=== PATIENT | female | born 1960 | race Caucasian/White ===

== ENCOUNTER 2018-06-01 07:42 | Day surgery (SDC) | END 2018-06-01 15:20 | disposition home or self-care (01) ==

== ENCOUNTER 2018-11-19 08:09 | Day surgery (SDC) | payer MEDICAID, OTHER ==
[2018-11-16 16:16] VITALS: Ht 152.4 cm; Wt 81.8 kg
[2018-11-19] VITALS (29 sets, daily range): BP systolic 114–141; BP diastolic 57–76; PULSE 63–82; RESP 13–19
[~2018-11-19] VITALS: Ht 152.4 cm; Wt 81.8 kg
[~2018-11-19 08:09] MED LIST: CEFAZOLIN 2 GM/50 ML (PMX) 50 ML IVPB SCH; ISOSULFAN BLUE 1% 5 ML INJ SC ONE; SOD CHLORIDE 0.9% 1,000 ML IV SCH
[2018-11-19] MEDS ORDERED: ISOSULFAN BLUE 1% 5 ML INJ SC ONE (11:41)
--- NOTE | 2018-11-19 12:20 | PREAC ---
Date/Time of Note Date/Time of Note DATE: 11/19/18 TIME: 12:17 Anesthesia Eval and Record Evaluation Time Pre-Procedure Interview DATE: 11/19/18 TIME: 12:17 Age 57 Sex female NPO: 8 hrs Preoperative diagnosis Lt breast mass Planned procedure Lt Breast needle localized partial mastectomy Past Medical History Past Medical History: None Surgery & Anesthesia Issues No known issue Meds Anticoagulation: No Beta Katherine within 24 hr: No Reason Beta Katherine not given: Pt. not on B-Katherine No Active Prescriptions or Reported Meds Current Medications Cefazolin Sodium/ Dextrose 50 ml @ 100 mls/hr PRE-OP IVPB ; Start 11/19/18 at 07:00; Stop 11/19/18 at 19:00 Sodium Chloride 1,000 ml @ 75 mls/hr [id number] IV ; Start 11/19/18 at 07:00; Stop 11/19/18 at 19:00 Meds reviewed: Yes Allergies Coded Allergies: No Known Allergy (Unverified , 11/19/18) Allergies Reviewed: Yes Labs/Studies Labs Reviewed: Reviewed by anesthesiologist test: N/A Studies: ECG Pre-procedure Exam Last vitals Vital Signs Date Temp Pulse Resp B/P (MAP) Pulse Ox O2 O2 Flow FiO2 Time Delivery Rate 11/19/18 96.8 64 16 114/57 100 Room Air 11:56 (76) Airway: Adequate mouth opening, Adequate thyromental dist Mallampati: Mallampati II Teeth: Normal Lung: Normal Heart: Normal ASA Physical Status ASA physical status: 3 Emergency: None Planned Anesthetic General/MAC: LMA Planned Pain Management Parenteral pain med Pre-operative Attestations Prior to commencing anesthesia and surgery, the patient was re-evaluated, there was verification of: *The patient's identity *The results of appropriate recent lab work and preoperative vital signs *The above evaluation not changing prior to induction *Anesthetic plan, risk benefits, alternative and complications discussed with patient/family; questions answered; patient/family understands, accepts and wishes to proceed. LILLIE SULLIVAN MD Nov 19, 2018 12:20
[2018-11-19] MEDS ORDERED: FENTAnyl 50 MCG/ML VIAL ONE (12:43)
[2018-11-19] MEDS ORDERED: MIDAZOLAM 1 MG/ML 2 ML INJ ONE (12:43)
[2018-11-19] MEDS ORDERED: PROPOFOL 20 ML ONE (13:45)
[2018-11-19] MEDS ORDERED: LIDOCAINE 2% (SDV) 5 ML INJ ONE (13:45)
[2018-11-19] MEDS ORDERED: CEFAZOLIN 1 GM INJ ONE (13:45)
[2018-11-19] MEDS ORDERED: ONDANSETRON 4 MG INJ ONE (13:46)
--- NOTE | 2018-11-19 13:55 | SIPON ---
Date/Time of Note Date/Time of Note DATE: 11/19/18 TIME: 13:53 Operative Report Preoperative Diagnosis Locally advanced left breast cancer Postoperative Diagnosis Same Operation/Procedure Performed Left needle directed partial mastectomy and axillary dissection Surgeon see signature line visitor services assistant Dr Parr Anesthesia: general Estimated blood loss: 10 - 50 ml's Transfusion Required none Specimen Left partial mastectomy specimen and axillary contents Grafts/Implants 1 none Complications none TENISHA ARELLANO MD Nov 19, 2018 13:55
[2018-11-19] MEDS ORDERED: ONDANSETRON 4 MG INJ IV PRN (14:00)
[2018-11-19] MEDS ORDERED: ACETAMINOPHEN 1000MG/100ML IV 100 ML IVPB PRN (14:00)
[2018-11-19] MEDS ORDERED: morphine 2 MG INJ IV PRN (14:00)
--- NOTE | 2018-11-19 14:50 | OPR ---
DATE OF OPERATION: 11/19/2018 PREOPERATIVE DIAGNOSIS: Locally advanced invasive cancer, left breast. POSTOPERATIVE DIAGNOSIS: Locally advanced invasive cancer, left breast. PROCEDURE: Left needle-directed partial mastectomy and axillary dissection. ANESTHESIA: General. ANESTHESIOLOGIST: Iván Quijano MD. SURGEON: Brandon Nogueira MD ELECTRONICS INSTRUCTOR: Jonathan Ayala MD INDICATIONS FOR PROCEDURE: The patient is an unfortunate 57-year-old female who presented with a loc ally advanced left breast cancer. She had a 3.5 cm tumor and biopsy proven axillary metastasis. Giuseppe or was HER-2 positive. Therefore, the patient underwent neoadjuvant chemotherapy with good response. She was thus a candidate for breast conservation surgery. She consented and was scheduled for surg kelly. DESCRIPTION OF PROCEDURE: On the morning of surgery, the patient presented to [facility] where she underwent localization of the lesion performed by attending radiologist, Dr. Elisabet Schneider. Subsequently, she was brought to the operating theater, placed under general anesth esia. The left breast and axillary region was prepped and draped in the usual sterile fashion. The localization wire was at approximately the 3 o'clock location extending directly into the subareolar location. The tumor itself radiographically was directly posterior to the nipple. Therefore, a farnaz areolar incision was made from the 12 o'clock location through the 3 o'clock location to the 6 o'cloc k location. Subcutaneous tissue was dissected with cautery. Skin edges were elevated with skin hook s and wide circumferential dissection of the tissue associated with the wire took place all the way d own to the pectoralis major fascia. Specimen was then elevated and transected directly off of the pe ctoralis major muscle. It was removed, oriented and sent for radiographic confirmation of capture. Capture was confirmed. The wound was irrigated. Residual bleeding was controlled with cautery. Due to the large size of the defect, decision was made to place a #10 flat Prashanth-Reese drain within th e wound cavity. It was brought through the left mid axillary line, cut to size, laid within the cavi ty and then secured in place with 2-0 nylon suture. The skin incision was then closed in double laye r fashion with 4-0 Vicryls in deep dermal interrupted fashion, followed by running 4-0 Vicryl suture in subcuticular fashion. Attention was then directed to performing the axillary dissection. Approximately 4 to 6 cm incision was made in the left axillary hairline. Subcutaneous tissue was dissected with cautery. Dissection proceeded posteriorly to the latissimus dorsi muscle, was identified throughout its course. Dissecti on then proceeded anteriorly until the pectoralis major muscle and subsequently the pectoralis minor muscle was identified. Clavipectoral fascia was incised with blunt dissection along the chest wall. The long thoracic nerve was identified and kept out of harm's way. More superiorly, the axillary ve in was identified, dissected from lateral to medial. There were several relatively large lymph nodes noted suspicious for possible residual disease. In this fashion, level 2 and level 2 lymph nodes we re harvested. Great care was taken not to injure the thoracodorsal neurovascular bundle. The lymph nodes were removed and sent for permanent pathologic analysis. The wound was irrigated. Minimal ble eding was controlled with cautery. A #10 flat Prashanth-Reese drain was then brought through the left mid axillary line, cut to size and laid within the axilla. It was secured in place with 2-0 nylon rosales ture in standard fashion. The skin was then reapproximated with 4-0 Vicryl suture in subcuticular fa shion. Dermabond was applied to both incisions. The patient tolerated procedure well. The estimate d blood loss was approximately 30 mL. There were no complications and the patient was transported in stable condition to the recovery room where circumferential compression dressing was applied. Dictated By: BRANDON NOGUEIRA MD TL/MARQUITA Conf#: [id number] DID#: [id number] CC: BRANDON NOGUEIRA MD; JONATHAN AYALA MD;*EndCC*
[2018-11-19] MEDS ORDERED: HYDROCODONE/APAP (5/325) TAB PO PRN (15:30)
--- NOTE | 2018-11-19 15:34 | HP ---
DATE OF ADMISSION: 11/19/2018 CHIEF COMPLAINT AND HISTORY OF PRESENT ILLNESS: The patient is a 57-year-old female with history of moderately differentiated invasive ductal carcinoma of left breast which was subsequently noted to be HER-2 positive. The patient underwent a Port-A-Cath placement few months ago and subsequently under went neoadjuvant chemotherapy at [facility]. The patient is also being followed by Dr. Campbell abraham. The patient was being followed by Dr. Nogueira as an outpatient and was brought into the hospital today for left needle-directed partial mastectomy and axillary dissection. The patient has signific ant postoperative chest wall pain and is being admitted for further evaluation and management. The p atient apparently had a good response from neoadjuvant chemotherapy and therefore was a candidate for breast conservation surgery. The patient did not have any headache, dizziness, syncope. No history of cough. No history of sore throat. No history of abdominal pain. No history of vomiting. No hi story of focal weakness. REVIEW OF SYSTEMS: Other than postoperative pain, rest of review of systems was unremarkable. PAST MEDICAL HISTORY: As stated above. PAST SURGICAL HISTORY: As stated above. In addition, the patient also is status post . ALLERGIES: NO KNOWN DRUG ALLERGIES. FAMILY HISTORY: No family history of cancer. Mother apparently had vasculitis and father is diabeti c. SOCIAL HISTORY: Nonsmoker, no alcohol use. PHYSICAL EXAMINATION: GENERAL: Revealed the patient to be lethargic from recent surgery, but arousable and follows simple commands. VITAL SIGNS: Temperature 96.8, pulse 64, respirations 16, blood pressure 141/57, O2 sat is 100% on r oom air. HEENT: No eye discharge or redness. Conjunctivae and lids are normal. Oropharynx is clear. NECK: No mass. CHEST: Fairly clear. CARDIOVASCULAR: S1, S2 normal. No murmur. ABDOMEN: Soft, nondistended, nontender. EXTREMITIES: The patient did not have any edema. Pedal pulses are palpable. SKIN: Without acute rash. NEUROLOGIC: No gross focal deficit. LABORATORY DATA: WBC 5.7, hemoglobin 9.4. IMPRESSION: Locally advanced left breast cancer with biopsy-proven axillary metastases, status post neoadjuvant chemotherapy with good response. The patient was admitted today for left needle-directed partial mastectomy and axillary dissection. PLAN: The patient will be admitted on medical floor. The patient will be started on a clear liquid diet, which will be advanced as tolerated. We will use SCD for DVT prophylaxis. For pain, the patie nt will be put on Tylenol, [place] and IV morphine. We will use Zofran for nausea, vomiting. If the p atient continues to do well, she will be discharged home tomorrow. Dictated By: ED CRAWFORD MD AB/MARQUITA Conf#: [id number] DID#: [id number] CC: TENISHA NOGUEIRA MD;*EndCC*
[2018-11-19] MEDS: D5W-0.45 NACL + KCL 20 MEQ 1,000 ML IV SCH (16:53)
[2018-11-20 00:35] VITALS: BP 119/57; PULSE 69; RESP 18
[2018-11-20] MEDS: D5W-0.45 NACL + KCL 20 MEQ 1,000 ML IV SCH ×3 (03:24→12:20)
[2018-11-20 05:42] VITALS: BP 117/57; PULSE 80; RESP 18
[2018-11-20 07:27] VITALS: BP 121/58; PULSE 72; RESP 19
[2018-11-20 15:08] VITALS: BP 111/62; PULSE 82; RESP 18
--- NOTE | 2018-11-20 15:39 | PN ---
DATE: 11/20/2018 Postop day #1 status post left breast partial mastectomy and axillary dissection. SUBJECTIVE: No specific complaint, has been out of bed, walk around, as tolerated diet. OBJECTIVE: GENERAL: Awake, alert, oriented x3. VITAL SIGNS: Temperature maximum today 98.4, heart rate 80, respiration 18, blood pressure 117/57, saturation 98% room air. INPUT AND OUTPUT: The patient has two Prashanth-Reese drains. They have drained 55 mL and 50 mL from the time of operation yesterday until 7:00 today morning. The color in the tubing now at the time of examination is serosanguineous. Dressing is intact. ASSESSMENT AND PLAN: The patient is with invasive cancer of left breast, status post chemotherapy neoadjuvant, had partial mastectomy with axillary dissection yesterday. The patient is stable today. The patient can be discharged to home and to be followed by Dr. Nogueira in his office. The patient already has an appointment for 12/04/2018 to be seen by Dr. Nogueira in the office. Instructions for the care of Prashanth-Reese was given to the patient by me or by the nurse and she was instructed to record the drainage every day and when she goes to follow up Dr. Nogueira' office, to take the paper with her. All questions were answered. The patient can be discharged to home today. Dictated By: NATASHA AYALA MD PS/NTS Conf#: [id number] DID#: [id number] CC: ED CRAWFORD MD; TENISHA NOGUEIRA MD;*EndCC* MTDD
[2018-11-20] MEDS ORDERED: HYDR-3601 PO (16:17)
--- NOTE | 2018-11-25 22:13 | DS ---
Date/Time of Note Date/Time of Note DATE: 11/25/18 TIME: 22:11 Discharge Summary Admission/Discharge Info Admit Date/Time Discharge Date/Time Patient Condition: Stable Hx of Present Illness The patient is a 57-year-old female with history of moderately differentiated invasive ductal carcinoma of left breast which was subsequently noted to be HER- 2 positive. The patient underwent a Port-A-Cath placement few months ago and subsequently underwent neoadjuvant chemotherapy at [facility]. The patient is also being followed by Dr. Ricardo. The patient was being followed by Dr. Nogueira as an outpatient and was brought into the hospital today for left needle-directed partial mastectomy and axillary dissection. The patient has significant postoperative chest wall pain and is being admitted for further evaluation and management. The patient apparently had a good response from neoadjuvant chemotherapy and therefore was a candidate for breast conservation surgery. The patient did not have any headache, dizziness, syncope. No history of cough. No history of sore throat. No history of abdominal pain. No history of vomiting. No history of focal weakness. Hospital Course Locally advanced left breast cancer with biopsy-proven axillary metastases, status post neoadjuvant chemotherapy with good response. The patient was admitted today for left needle-directed partial mastectomy and axillary dissection by Dr Nogueira. DW DR Alcantara. Home Meds Active Scripts Hydrocodone Bit-Acetaminophen (Hydrocodone Bit-APAP) 5-325MG Tablet, 1 TAB PO Q4H PRN for MODERATE PAIN LEVEL 4-6, #30 TAB Prov:ADAMA BRITO 11/20/18 Follow-up Plan Follow-up with Dr. Nogueira in 1-2 weeks. Primary Care Provider [facility] Time spent on discharge: > 30 minutes ADAMA BRITO Nov 25, 2018 22:13
== END 2018-11-20 17:05 | disposition home or self-care (01) ==
LOC: SDS 08:09 → MS1 13:57 → REC 13:57 → SDS 13:57 → MS1 13:57 → UNDOADMIN 13:57 → MS1 16:02 → REC 16:02 → MS1 16:12 → SDS 22:35 → MS1 22:35 → SDS 11-20 17:05
PROVIDERS: ATTEND Surgery Surgical Oncology
DX: C50.912 Malignant neoplasm of unspecified site of left female breast (principal)
CPT/HCPCS: 19301; 38500; 38792; 85025; 88307; 88342; J0690; J2250; J2270; J2405; J3010; J3480; Z7512; Z7610; Q9968

== ENCOUNTER → 2019-03-06 | Outpatient (CLI) | payer OTHER ==
[~2019-03-06] MED LIST changes: -CEFAZOLIN 2 GM/50 ML (PMX) 50 ML IVPB SCH; +HYDR-3601 PO; -ISOSULFAN BLUE 1% 5 ML INJ SC ONE; -SOD CHLORIDE 0.9% 1,000 ML IV SCH
--- NOTE | 2019-03-07 07:06 | RADRPT ---
Echocardiogram Report Patient Name: Eugenia YE ID: [id number] : 1960 (58y 3m)Study Date: 03/06/2019 8:46:26 AM Gender: FAccession #: [id number] Tech: Aroldo Scott RDCS Location: EKG Ref.Physician: GREGORY CARDOSO Height(Cm): BSA: Weight(Kg): Quality: AdequateOrder Physician: GREGORY CARDOSO Account #: Procedures: Echocardiographic Report: Transthoracic echocardiogram with complete 2D, M-Mode, and doppler examination. Indications: Breast Cancer. Measurements: 2D/M Mode Doppler Measurement Value Normal Range Measurement Value Normal Range LVIDd 2D 4.8 [ 3.8 - 5.2 ] cm AV Peak Kwasi 1.5 [ 100.0 - 170.0 ] cm/sec LVIDs 2D 2.5 [ 2.2 - 3.5 ] cm AV Peak PG 9.0 [ 2.0 - 9.0 ] mmHg LVPWd 2D 0.9 [ 0.6 - 0.9 ] cm LVOT Peak Kwasi 1.2 [ 70.0 - 110.0 ] cm/sec IVSd 2D 1.0 [ 0.6 - 0.9 ] cm LVOT Peak PG 5.0 [ 2.0 - 6.0 ] mmHg IVS/LVPW 2D 1.1 ratio MV E Peak Kwasi 0.9 [ 60.0 - 130.0 ] cm/sec AoR Diam 2D 2.6 [ 2.3 - 3.1 ] cm MV A Peak Kwasi 1.0 [ 100.0 - 120.0 ] cm/sec LA/Ao 2D 1 ratio MV E/A 0.8 [ 0.8 - 1.5 ] ratio LA Dimen 2D 2.9 [ 2.7 - 3.8 ] cm MV Decel Time 176 [ 104 - 258 ] msec Lat E` Kwasi 0.1 [ 10.0 - 15.0 ] cm/sec MV E/A 0.8 [ 0.8 - 1.5 ] ratio Findings: Left Ventricle: Normal left ventricular systolic function. Normal left ventricular cavity size. Normal left ventricular wall thickness. Ejection fraction is visually estimated at 55 %. Tissue Doppler/Mitral Doppler indices are within normal limits. Right Ventricle: Normal right ventricular size. Normal right ventricular systolic function. Left Atrium: The left atrium is normal in size. Right Atrium: The right atrium is normal in size. Mitral Valve: Normal appearance and function of the mitral valve with trace physiologic regurgitation. Aortic Valve: Normal appearance of the aortic valve. No significant aortic stenosis or insufficiency. Tricuspid Valve: Normal appearance and function of the tricuspid valve with trace physiologic regurgitation. Unable to obtain RVSP due to minimal presence of tricuspid regurgitation. There is trace tricuspid regurgitation. Pulmonic Valve: Normal pulmonic valve appearance. Pericardium: Normal pericardium with no significant pericardial effusion. Aorta: Normal aortic root. IVC: Normal size and normal respiratory collapse consistent with normal right atrial pressure. Conclusions: Normal left ventricular systolic function. Normal left ventricular cavity size. Normal left ventricular wall thickness. Ejection fraction is visually estimated at 55 %. Tissue Doppler/Mitral Doppler indices are within normal limits. No significant valvular stenosis or regurgitation seen. Unable to obtain RVSP due to minimal presence of tricuspid regurgitation. Normal size and normal respiratory collapse consistent with normal right atrial pressure. Electronically Signed By: Hossein Sousa 2019-03-07 07:06:18 PDT
== END | disposition home or self-care (01) ==
LOC: EKG 08:28
PROVIDERS: ATTEND Internal Medicine Hematology & Oncology
DX: C50.312 Malignant neoplasm of lower-inner quadrant of left female breast (principal)
CPT/HCPCS: 93306